=== PATIENT | male | born 1975 | race Two or more races ===

== ENCOUNTER 2022-11-04 10:37 | Emergency (ER) | payer OTHER ==
[~2022-11-04] VITALS: Ht 165.1 cm; Wt 74.8 kg
[2022-11-04] MEDS ORDERED: ZITHROMAX500 MG PO (12:58)
== END 2022-11-04 13:37 | disposition home or self-care (01) ==
LOC: ER 10:37
DX: B34.9 Viral infection, unspecified (principal)